=== PATIENT | female | born 1995 | race Caucasian/White ===

== ENCOUNTER 2022-02-21 09:41 | Emergency (ER) | payer OTHER, SELFPAY ==
--- NOTE | ~2022-02-21 | US_ITS ---
EXAMINATION: US pelvic complete w TV DATE: 02/21/2022 12:59 INDICATION: Vaginal bleeding with cramps. Comparison:No prior studies for comparison. TECHNIQUE: Multiple transabdominal and endovaginal sonographic images of the pelvis performed. FINDINGS: The uterus measures 7.8 x 3.5 x 3.1 cm. There is a small amount of debris in the endometriu m. The endometrial complex measures 6 mm. The right ovary measures 3.3 x 1.9 x 2.2 cm and the left ovary measures 2.8 x 2.4 x 2.2 cm. There ar e small follicles in each ovary. Normal doppler signal in both ovaries. There is no free fluid in the pelvis. There are no abnormal masses seen on either side. IMPRESSION: 1. Unremarkable pelvic ultrasound Reviewed, dictated and finalized at location B.
[2022-02-21 09:59] VITALS: BP 138/79; PULSE 79; RESP 20; TEMP 37; O2SAT 100
[2022-02-21 10:31] LABS: Basophils Percent Auto 0.6 % (0.2-1.2); Eosinophils Absolute Auto 0.1 K/mm3 (0-0.3); Eosinophils Percent Auto 1.6 % (0-4.4); Hematocrit 42.2 % (37.0-47.0); Hemoglobin 13.6 g/dL (12.0-15.0); Immature Granulocyte Absolute 0.02 K/mm3 (0.00-0.031); Immature Granulocyte Percent A 0.3 % (0-0.5); Lymphocytes Absolute Auto 1.75 K/mm3 (0.9-3.2); Lymphocytes Percent Auto 24.7 % (18.3-44.2); Mean Corpuscular HGB Conc 32.2 g/dl (32-36); Mean Corpuscular Hemoglobin 27.8 pg (26-34); Mean Corpuscular Volume 86.3 fl (80-100); Mean Platelet Volume 10.5 fl (7.4-10.4); Monocytes Absolute Auto 0.8 K/mm3 (0.1-0.6); Neutrophils Absolute Auto 4.4 K/mm3 (1.3-6.7); Neutrophils Percent Auto 61.8 % (45.5-73.1); Platelet Count Result 230 k/mm3 (150-375); Red Blood Count 4.89 M/mm3 (4.2-5.4); Red Cell Distribution Width 12.9 % (11.5-14.5); White Blood Count 7.1 K/mm3 (4.5-10.0)
[2022-02-21 10:57] LABS: Beta HCG Quantitative < 2.39 mIU/ML
--- NOTE | 2022-02-21 12:07 | ED.FEMALEGU ---
HPI - Female Genitourinary General Chief complaint: Vaginal Bleeding Stated complaint: HEAVY VAG BLEEDING Time Seen by Provider: 02/21/22 11:56 History of Present Illness HPI Narrative: 26-year-old female here for evaluation of heavy menstrual bleeding for the past several days. Patient states that she started her usual menstrual cycle on 14 February which was 5 days late. She had her usual cycle that lasted about 5 days. The bleeding returned 3 days ago, has been heavy, and she has passed small blood clots. States she soaked through a regular tampon in about an hour. She denies history of irregular cycles, she is not currently on control. She is unsure if she is . She follows with an PULL OUT OPERATOR, but is unsure of the name. Additionally notes some lower abdominal cramping but has not taken anything for this today. Related Data Allergies Allergy/AdvReac Type Severity Reaction Status Date / Time No Known Allergies Allergy Verified 02/21/22 11:52 Review of Systems Review of Systems: Gen: Denies fevers or chills Eyes: Denies eye pain or visual change ENT: Denies congestion Respiratory: Denies shortness of breath or cough CV: Denies chest pain or palpitations GI: Denies abdominal pain nausea, emesis or diarrhea : reports heavy vaginal bleeding. Musculoskeletal: Denies back pain or muscle pain Neuro: Denies numbness, tingling, weakness or focal weakness Skin: Denies rash Except as documented, all other systems reviewed and negative Exam Narrative: APPEARANCE: Well appearing, no pain in distress, well-nourished. Head: Normocephalic and atraumatic. EYES: PERRLA/EOMI, conjunctivae clear NOSE: No nasal drainage EARS: External ear normal in appearance THROAT: Oropharynx is clear. Mucous membranes are moist. NECK: Supple. No adenopathy, no masses. RESPIRATORY: Airway patent, respirations nonlabored. Clear to auscultation bilaterally, no rales, rhonchi, wheezing. CARDIOVASCULAR: Regular rate and rhythm without murmurs, rubs, or gallops. ABDOMINAL: Normoactive bowel sounds. Soft, nontender, nondistended. No rebound tenderness or guarding. : Pelvic exam with scant amount of blood in the vaginal vault, cervical os is closed, no brisk vaginal bleeding or hemorrhage. MUSCULOSKELETAL: Extremities are warm and well-perfused. Moves all extremities well. No edema. NEURO: Normal speech. No focal neurologic deficits. SKIN: Skin is warm and dry. No rashes. PSYCHIATRIC: Normal affect/mood.. Course Vital Signs Vital signs: Vital Signs Temperature 98.6 F 02/21/22 09:59 Pulse Rate 79 02/21/22 09:59 Respiratory Rate 20 02/21/22 09:59 Blood Pressure 138/79 02/21/22 09:59 Pulse Oximetry 100 02/21/22 09:59 Oxygen Delivery Room Air 02/21/22 09:59 Temperature 98.6 F 02/21/22 09:59 Pulse Rate 79 02/21/22 09:59 Respiratory Rate 20 02/21/22 09:59 Blood Pressure 138/79 02/21/22 09:59 Pulse Oximetry 100 02/21/22 09:59 Oxygen Delivery Room Air 02/21/22 09:59 MDM - Female Genitourinary MDM Narrative Medical decision making narrative: 26-year-old female here for evaluation of heavy vaginal bleeding for the past several days extending past her normal menstrual cycle. Here she is nontoxic-appearing with normal vital signs. Urine is negative. Her hemoglobin hematocrit are normal. She has no abdominal tenderness on exam. Pelvic exam with scant amount of blood noted in the vaginal vault, cervical os is closed, pelvic ultrasound unremarkable. Patient will be discharged to follow-up with her PULL OUT OPERATOR and we will send in iron supplementation to pharmacy. She was given reasons to return to the ED and she voiced understanding. Lab Data Result diagrams: 02/21/22 10:25 Labs: Lab Results 02/21/22 02/21/22 02/21/22 Range/Units 10:25 10:25 10:25 WBC 7.1 (4.5-10.0) K/mm3 RBC 4.89 (4.2-5.4) M/mm3 Hgb 13.6 (12.0-15.0) g/dL Hct 42.2 (37.0-47.0) %
[2022-02-21] MEDS: KETOROLAC 15 MG/ML VIAL (*BKC) IV PUSH (12:31)
== END 2022-02-21 13:28 | disposition home or self-care (01) ==
PROVIDERS: Emergency Provider Emergency Medicine
DX: N93.9 Abnormal uterine and vaginal bleeding, unspecified (principal)
CPT/HCPCS: 36415; 76830; 76856; 84702; 85025; 85461; 96374; 99284; J1885

== ENCOUNTER 2024-06-29 14:07 | Outpatient (CLI) | payer BC, SELFPAY ==
--- OUTSIDE RECORDS SUMMARY | 2024-06-29 14:26 | XMS_ITS | Clinical Summary ---
Author Organization [facility] Address [address] [place] [address] Care Team Providers Care Process Stripper Name Role Phone Clau Ghotra Primary Care Provider [phone] Allergies No known active allergies Medications No known medications Active Problems No known active problems Resolved Problems Problem Noted Date Diagnosed Date Resolved Date Encounter for preventive health examination 01/26/2016 11/14/2020 Immunizations Name Administration Dates Next Due DTaP (Daptacel) 1997 Dtap 10/30/2001 Hepatitis A (Generic) 12/08/2008,10/08/2007 Influenza (FluMist) 02/27/2011 Influenza (Generic) 03/03/2008,03/20/2007 Influenza Adult (Generic) 04/01/2014,03/31/2013 MMR 10/30/2001 Menactra 04/01/2014 Meningococcal 12/08/2008 Polio IPV (Ipol) 10/30/2001 Tdap (Boostrix) 12/08/2008 Tdap (Generic) 03/21/2018 Varicella Vaccine 10/08/2007 Family History * Patient is adopted Relation Status Comments Father Alive Mother Alive Social History Tobacco Use Types Packs/Day Years Used Date Smoking Tobacco: Never Smokeless Tobacco: Never Tobacco Cessation:Counseling Given: No Alcohol Use Standard Drinks/Week Comments Yes 0 (1 standard drink = 0.6 oz pur e alcohol) socially PHQ-2 Answer Date Recorded PHQ-2 Score - If the patient scores above 3, please move on to questions 3-9 0 01/12/2021 Comments No Sex and Gender Information Value Date Recorded Sex Assigned at Not on file Legal Sex Female 7:58 PM CDT Gender Identity Not on file Sexual Orientation Not on file Last Filed Vital Signs Vital Sign Reading Time Taken Comments Blood Pressure 110/66 01/12/2021 8:05 AM CDT Pulse 76 01/12/2021 8:05 AM CDT Temperature 36.3 C (97.3 F) 01/12/2021 8:05 AM CDT Respiratory Rate 16 01/12/2021 8:05 AM CDT Oxygen Saturation 97% 01/12/2021 8:05 AM CDT Inhaled Oxygen Concentration - - Weight 82.6 kg (182 lb) 01/12/2021 8:05 AM CDT Height 162.6 cm (5' 4 ) 01/12/2021 8:05 AM CDT Body Mass Index 31.24 01/12/2021 8:05 AM CDT Plan of Treatment Health Maintenance Due Date Last Done Comments Cervical Cancer Screening Pap Smear (Age 21 to 29) Every 3 Years 1997 Cervical Cancer Screening 1997 Annual Physical 2000 HPV Vaccines (1 - 3-dose series) 2012 Hepatitis C 09/23/2015 Hepatitis B Vaccines (1 of 3 - 19+ 3-dose series) 2016 COVID-19 Vaccine ( - season) 2024 Influenza Adult (#1) 2024 04/01/2014, 03/31/2013, 02/27/2011, Additional history exists DTaP, Tdap and Td Vaccines (5 - Td or Tdap) 03/21/2028 03/21/2018, 12/08/2008, 10/30/2001, Additional history exists Meningococcal Vaccine Completed 04/01/2014, 009 Meningococcal B Vaccine Aged Out No l onger eligible based on patient's age to complete this topic Pneumococcal Vaccine: Pediatrics (0 to 5 Years) and At-Risk Patients (6 to 64 Years) Aged Out No longer eligible based on patient's age to complete this topic RSV Immunizations Under 20 Months Aged Out No longer eligible based on patient's age to complete this topic Insurance Care Teams Process Stripper Relationship Specialty Start Date End Date Clau Ghotra APNP PCP - General 12/10/16
--- OUTSIDE RECORDS SUMMARY | 2024-06-29 14:26 | XMS_ITS | Referral Summary ---
Author Organization [facility] [employer] Address [address] [place] [address] Care Team Providers Care Clinical Cytogenetics Director Name Role Phone Clau Henderson DO Primary Care Provider Source Comments [facility],non-owned Affiliates and Associated Physician Practices is amultiple site organization consisting of ambulatory clinics and hospital sitesin [place], [place], [place] and [place]. This disclosure is being madepursuant to the Care Everywhere program and may not contain all information available regarding this patient. Last updated 18.[facility] Allergies No known active allergies Medications Be aware that medications may not be up to date on this document. Always verify current medications with the patient. No known medications Active Problems No known active problems Immunizations Name Administration Dates Next Due TDAP (7yrs+) 03/21/2018 Social History Tobacco Use Types Packs/Day Years Used Date Smoking Tobacco: Never Smokeless Tobacco: Never Alcohol Use Standard Drinks/Week Comments Yes 0 (1 standard drink = 0.6 oz pur e alcohol) AUDIT-C Answer Date Recorded Q1: How often do you have a drink containing alc ohol? Monthly or less 08/04/2020 Average Number of Drinks Not on file 021 Frequency of Binge Drinking Not on file 07/18 Sex and Gender Information Value Date Recorded Sex Assigned at Not on file Gender Identity Not on file Sexual Orientation Not on file Last Filed Vital Signs Vital Sign Reading Time Taken Comments Blood Pressure 110/80 08/04/2020 1:37 PM CDT Pulse 90 08/04/2020 1:37 PM CDT Temperature 36.7 C (98.1 F) 08/04/2020 1:37 PM CDT Respiratory Rate - - Oxygen Saturation 98% 08/04/2020 1:37 PM CDT Inhaled Oxygen Concentration - - Weight 80.7 kg (178 lb) 08/04/2020 1:37 PM CDT Height 165.1 cm (5' 5 ) 08/04/2020 1:37 PM CDT Body Mass Index 29.62 08/04/2020 1:37 PM CDT Plan of Treatment Not on file Care Teams Clinical Cytogenetics Director Relationship Specialty Start Date End Date Clau Henderson DO PCP - General Internal Medicine 08/04/20
--- OUTSIDE RECORDS SUMMARY | 2024-06-29 14:26 | XMS_ITS | Encounter Summary ---
Author Organization [facility] Address [address] [place] [address] Care Team Providers Care Parts Identification Technician Name Role Phone Clau Ghotra Primary Care Provider [phone] Encounter Details Date Type Department Care Team (Late st Contact Info) Description 03/23/2017 [place] [address] , Generic ConversionMD Social History Tobacco Use Types Packs/Day Years Used Date Smoking Tobacco: Never Assessed Comments Unknown Sex and Gender Information Value Date Recorded Sex Assigned at Not on file Legal Sex Female 7:58 PM CDT Gender Identity Not on file Sexual Orientation Not on file documented as of this encounter Plan of Treatment Not on file documented as of this encounter Visit Diagnoses Not on filedocumented in this encounter Care Teams Parts Identification Technician Relationship Specialty Start Date End Date Clau Ghotra APNP PCP - General 12/10/16 documented as of this encounter
--- OUTSIDE RECORDS SUMMARY | 2024-06-29 14:26 | XMS_ITS | Clinical Summary ---
Author Organization [facility] [employer] Address [address] [place] [address] Care Team Providers Care Palaeontologist Name Role Phone Clau Henderson DO Primary Care Provider Source Comments [facility],non-owned Affiliates and Associated Physician Practices is amultiple site organization consisting of ambulatory clinics and hospital sitesin [place], [place], [place] and [place]. This disclosure is being madepursuant to the Care Everywhere program and may not contain all information available regarding this patient. Last updated 18.[employer] [facility] Allergies No known active allergies Medications Be aware that medications may not be up to date on this document. Always verify current medications with the patient. No known medications Active Problems No known active problems Immunizations Name Administration Dates Next Due TDAP (7yrs+) 03/21/2018 Family History * Patient is adopted Medical History Relation Name Comments None Known Adoptive Father None Known Adoptive Mother Other Brother 1 Donn alcohol s yndrome None Known Brother 2 Barry Other Sister Theresa alcohol s yndrome Relation Name Status Comments Adoptive Father Alive Adoptive Mother Alive Brother 1 Donn Alive Brother 2 Barry Alive Maternal Grandfather Maternal Grandmother Paternal Grandfather Paternal Grandmother Sister Theresa Alive Social History Tobacco Use Types Packs/Day [...] 08/04/2020 1:37 PM CDT Plan of Treatment Health Maintenance Due Date Last Done Comments PAP SMEAR 1997 HPV VACCINE (1 - 3-dose series) 2012 HEPATITIS B VACCINE (1 of 3 - 19+ 3-dose series) 2016 COVID-19 VACCINE ( - 2023-2 5 season) 2024 INFLUENZA VACCINE (#1) 2024 DEPRESSION SCREENING 05/20/2024 DTAP/TDAP/TD VACCINES (2 - T d or Tdap) 03/21/2028 03/21/2018 ZOSTER VACCINE (1 of 2) 09/23/2047 HEPATITIS C SCREENING Discontinued HIB VACCINE Aged Out No longer eligi ble based on patient's age to complete this topic HIV SCREENING Discontinued MENINGOCOCCAL (Group B) VACCINE Aged Out No longer eligible based on patient's age to complete this topic MENINGOCOCCAL VACCINE Aged Out No jeremiah ronit eligible based on patient's age to complete this topic PNEUMOCOCCAL VACCINE Aged Out No long er eligible based on patient's age to complete this topic Care Teams Palaeontologist Relationship Specialty Start Date End Date Calu Henderson DO PCP - General Internal Medicine 08/04/20
--- OUTSIDE RECORDS SUMMARY | 2024-06-29 14:26 | XMS_ITS | Patient Health Summary ---
Author Organization [facility] [employer] Address [address] [place] [address] Care Team Providers Care Home Appliance Installer Name Role Phone Clau Henderson DO Primary Care Provider [phone] Note from [facility],non-owned Affiliates and Associated Physician Practices is amultiple site organization consisting of ambulatory clinics and hospital sitesin [place], [place], [place] and [place]. This disclosure is being madepursuant to the Care Everywhere program and may not contain all information available regarding this patient. Last updated 18.[facility] [employer] Allergies No known active allergies Medications Be aware that medications may not be up to date on this document. Always verify current medications with the patient. No known medications Active Problems No known active problems Immunizations * TDAP (7yrs+)(Given 03/21/2018) Social History Tobacco Use Types Packs/Day Years [...] Mass Index 29.62 08/04/2020 1:37 PM CDT Care Teams Home Appliance Installer Relationship Specialty Start Date End Date Clau Henderson DO PCP - General Internal Medicine 08/04/20
== END 2024-06-29 14:08 | disposition home or self-care (01) ==
LOC: ANHSURGERY 14:12
PROVIDERS: Visit Provider Obstetrics & Gynecology
DX: Z01.812 Encounter for preprocedural laboratory examination (principal); R10.2 Pelvic and perineal pain
CPT/HCPCS: 36415; 86850; 86900; 86901

== ENCOUNTER 2024-07-10 04:58 | Day surgery (SDC) | payer BC, SELFPAY ==
[2024-06-25 12:36] VITALS: BMI 27.5
--- NOTE | 2024-06-25 12:38 | SUR.PREOP ---
Report to the Outpatient Waiting Room, entrance under the green pavilion located off [facility], at time _0730_ on date _07/10/2024_. Planned Procedure Time: _0930_.? Time changes happen often and if your time is changed the preop area will call you the afternoon before. - You and your visitor will be asked to self-screen and do not enter if you have any COVID symptoms. Please call surgeon if you need to reschedule. - A mask is optional within the hospital at this time. Patients may have clear liquids (water, carbonated beverages, clear teas, apple juice) until 3 hours (0630) prior to surgery with a maximum of 20 ounces. - No food from midnight until time of surgery and no smoking, or chewing tobacco (or any form of nicotine). No chewing gum, candy or mints. Take only the following medications with a SIP of water on the morning of surgery: _valacyclovir_ DO NOT STOP ANY OF YOUR OTHER PRESCRIPTION MEDICATIONS PRIOR TO SURGERY EXCEPT THE FOLLOWING Hold all vitamins and supplements for 3 days per anesthesiologist. Medications to discontinue per physician _NA_ Date to take last dose_NA_ Please no make-up, nail croatian, hairspray, perfume, deodorant, or body powder the day of surgery.? No jewelry (including any body piercings) or valuables the day of surgery, leave them at home.? Please take a shower or bath the night before, or the morning of, surgery with an antibacterial soap.? Wear comfortable, loose fitting clothing. - Jewelry must be removed prior to entering the operating room.? Rings and piercings that are not removed may be cut off. - The hospital will not accept responsibility for valuables.? - Please leave all valuables, including medications, at home the day of surgery. If you are going home after surgery, a licensed winch driver must drive you home.? - NO public transportation without another adult if you receive anesthesia. - We recommend that an adult stay with you for 24 hours following discharge. - We also recommend that you do not drive, make important decision, drink alcoholic beverages, or take any drugs that were not prescribed by your health care provider for at least 24 hours after your discharge time. Follow any additional instructions given to you from your surgeon. Telephone instructions given to _Vasquez_and asked if any additional questions and then verbalized understanding. Patient advised to call surgeon office or pre surgery nurse liaison [phone] if any additional questions.
--- NOTE | 2024-07-08 07:22 | P.HP_ITS ---
H&P: HPI History of Present Illness Date/Time: 07/08/24 07:22 Chief Complaint: Pelvic pain Narrative: This is 28-year-old 0 admitted for laparoscopy with chromopertubation. She has severe dysmenorrhea pelvic pain and dyspareunia. She had STD testing which was negative she will undergo diagnostic laparoscopy. She would like to have a chromopertubation while this was going on and out of agreed. Risks and benefits of this procedure reviewed including min exclusive of , aspiration pneumonia, bleeding, transfusion, perforation injury to bowel, bladder, ureters, or other internal organs with need for open laparotomy. She received the ACOG handout entitled laparoscopy. She had all questions answered. She asked to proceed. Review of Systems Review of Systems: Gen: Denies fevers or chills Eyes: Denies eye pain or visual change ENT: Denies congestion Respiratory: Denies shortness of breath or cough CV: Denies chest pain or palpitations GI: Denies abdominal pain nausea, emesis or diarrhea : reports heavy vaginal bleeding. Musculoskeletal: Denies back pain or muscle pain Neuro: Denies numbness, tingling, weakness or focal weakness Skin: Denies rash Except as documented, all other systems reviewed and negative [facility] Social History Social History Smoking status: Never smoker Second hand tobacco smoke exposure: No Substance use: never Substance use type: does not use Living arrangements: with friend(s) Additional living arrangements comments: with boyfriend Spiritual care concerns: No Meds Home Medications and Allergies Home Medications ?Medication ?Instructions ?Recorded ?Confirmed ?Type valacyclovir 500 mg tablet 500 mg PO DAILY HSV 06/25/24 06/25/24 History Allergies Allergy/AdvReac Type Severity Reaction Status Date / Time No Known Allergies Allergy Verified 06/25/24 12:31 Exam Const: General: cooperative, healthy appearing and comfortable Nutritional Appearance: average body habitus Orientation/consciousness: oriented to person, oriented to place and oriented to time HENMT: Head: normal to inspection Resp: Effort & Inspection: normal respiratory effort Cardio: Rate: regular rate Rhythm: regular rhythm Heart sounds: S1 normal heart sound present and S2 normal heart sound present GI: Inspection: normal to inspection : External Female Exam: normal external appearance Speculum Exam - Vagina: normal appearance of the vagina Speculum Exam - Cervix: normal appearance of the cervix Bimanual exam- vagina & uterus: Uterine tenderness Bimanual Exam- Adnexa, other: tender bilaterally Assessment and Plan Assessment and plan (1) Pelvic pain: Code(s): R10.2 - Pelvic and perineal pain Status: Acute Plan Proceed with diagnostic laparoscopy and chromopertubation
[2024-07-10] VITALS (10 sets, daily range): BP systolic 92–128; BP diastolic 49–76; PULSE 54–86; RESP 12–18; TEMP 36.5–36.6; O2SAT 97–100
--- OUTSIDE RECORDS SUMMARY | 2024-07-10 05:01 | XMS_ITS | Patient Health Summary ---
Author Organization [facility] [employer] Address [address] [place] [address] Care Team Providers Care Film And Video Editor Name Role Phone Clau Henderson DO Primary Care Provider [phone] Note from [facility],non-owned Affiliates and Associated Physician Practices is amultiple site organization consisting of ambulatory clinics and hospital sitesin [place], [place], [place] and [place]. This disclosure is being madepursuant to the Care Everywhere program and may not contain all information available regarding this patient. Last updated 18.[facility] [employer] Allergies No known active allergies Medications Be [...] 29.62 08/04/2020 1:37 PM CDT Care Teams Film And Video Editor Relationship Specialty Start Date End Date Clau Henderson DO PCP - General Internal Medicine 08/04/20
--- OUTSIDE RECORDS SUMMARY | 2024-07-10 05:01 | XMS_ITS | Referral Summary ---
Author Organization [facility] [employer] Address [address] [address] Care Team Providers Care Tail End Rider Name Role Phone Clau Henderson DO Primary Care Provider Source Comments [facility] [employer],non-owned Affiliates and Associated Physician Practices is amultiple site organization consisting of ambulatory clinics and hospital sitesin [place], [place], [place] and [place]. This disclosure is being madepursuant to the Care Everywhere program and may not contain all information available regarding this patient. Last updated 18.[facility] [employer] Allergies No known active allergies Medications Be [...] of Treatment Not on file Care Teams Tail End Rider Relationship Specialty Start Date End Date Clau Henderson DO PCP - General Internal Medicine 08/04/20
--- OUTSIDE RECORDS SUMMARY | 2024-07-10 05:01 | XMS_ITS | Clinical Summary ---
Author Organization [facility] Address [address] [place] [address] Care Team Providers Care Counter Supply Worker Name Role Phone Clau Henderson DO Primary Care Provider [phone] Source Comments [facility],non-owned Affiliates and Associated Physician Practices is amultiple site organization consisting of ambulatory clinics and hospital sitesin [place], [place], [place] and [place]. This disclosure is being madepursuant to the Care Everywhere program and may not contain all information available regarding this patient. Last updated 18.[employer] Allergies No known active allergies Medications Be [...] age to complete this topic Care Teams Counter Supply Worker Relationship Specialty Start Date End Date Clau Henderson DO PCP - General Internal Medicine 08/04/20
--- OUTSIDE RECORDS SUMMARY | 2024-07-10 05:01 | XMS_ITS | Encounter Summary ---
Author Organization [facility] Address [address] [place] [address] Care Team Providers Care Community Arts Officer Name Role Phone Clau Ghotra Primary Care Provider [phone] Encounter Details Date Type Department Care Team (Late st Contact Info) Description 03/23/2017 [place] [address] , Generic ConversionMD Social History Tobacco Use [...] on filedocumented in this encounter Care Teams Community Arts Officer Relationship Specialty Start Date End Date Clau Ghotra APNP PCP - General 12/10/16 documented as of this encounter
--- OUTSIDE RECORDS SUMMARY | 2024-07-10 05:01 | XMS_ITS | Clinical Summary ---
Author Organization [facility] Address [address] [place] [address] Care Team Providers Care Marble Cleaner Name Role Phone Clau Ghotra Primary Care Provider [phone] Allergies No known active allergies Medications No [...] to complete this topic Insurance Care Teams Marble Cleaner Relationship Specialty Start Date End Date Clau Ghotra APNP PCP - General 12/10/16
--- NOTE | 2024-07-10 06:20 | WPDHPUPDATE1 ---
History and Physical Update Update Date/Time: 07/10/24 06:20 History and Physical has been reviewed, including an updated exam of the patient. There are NO changes in the patient's condition. Risks, benefits, and alternatives have been discussed and questions answered. Patient agrees to proceed with procedure.
--- NOTE | 2024-07-10 08:03 | P.PNAN_ITS ---
Anes - Initial Pre Proc Eval Procedure: Operation Date: 07/10/24 09:30 Proposed Procedures p Diagnostic Laparoscopy with Chromotubation - Jose Plata MD Date/Time: 07/10/24 08:03 Surgeon: Jose Plata MD Pre Op Diagnosis: Pelvic Pain, Dyspareunia Patient Data Age: 28 Gender: F Height: 1.63 m Weight: 72.72 kg Allergies Allergy/AdvReac Type Severity Reaction Status Date / Time No Known Allergies Allergy Verified 06/25/24 12:31 Home Medications ?Medication ?Instructions ?Recorded ?Confirmed ?Type valacyclovir 500 mg tablet 500 mg PO DAILY HSV 06/25/24 06/25/24 History hydrocodone 5 mg-acetaminophen 325 1 tablet PO Q4H PRN pain #20 tabs 07/10/24 Rx mg tablet Patient hx anesthesia problems: none Family hx anesthesia problems: none Results Review: All pre-operative results and documents have been reviewed as part of the pre- operative evaluation. PMFSH Past Medical History Medical History (Updated 07/10/24 @ 07:23 by Cyrus Jackson DO) ADHD Anxiety Social History Social History Smoking status: Never smoker Second hand tobacco smoke exposure: No Substance use: never Substance use type: does not use Living arrangements: with friend(s) Spiritual care concerns: No Anes - Eval Final PreProcedure Day of Procedure 07/10/24 08:03 Patient weight: overweight Heart: regular rate and rhythm Lungs: clear to auscultation Airway: Mallampati scale class II Neurological: alert and oriented Last oral intake: >/= 8 hours ASA classification: II Emergent: no Anesthetic plan: proceed Anesthesia type and monitoring: general ETT and standard monitoring Results Review: All pre-operative results and documents have been reviewed as part of the pre- operative evaluation. Informed Consent: The patient's anesthetic plan and its attendant risks and benefits were discussed with the patient/family/POA. Questions were solicited and answers provided to the satisfaction of the patient/family/POA.
[2024-07-10] MEDS: ACETAMINOPHEN 500 MG TABLET 1000 MG PO (08:20)
[2024-07-10] MEDS: LACTATED RINGERS 1,000 ML 30 ML IV CONT ×2 (08:20→11:09)
[2024-07-10] MEDS: KETOROLAC 15 MG/ML VIAL (*BKC) IV PUSH (08:20)
[2024-07-10 08:44] LABS: BEDSIDEPREGUCG Negative (Negative)
[2024-07-10] MEDS: METHYLENE BLUE 0.5% INJ 10 ML AMPULE 5 ML IRRIGATION (10:26)
--- NOTE | 2024-07-10 10:31 | W.PM.PROC2 ---
Procedure Note - Detailed Date of Procedure 07/10/24 Pre-op Diagnosis Pelvic Pain, Dyspareunia Post-op Diagnosis Other (Same with endometriosis) Procedure Performed Laparoscopy with destruction of endometriosis and chromopertubation Surgeon Jose Plata MD Anesthesia General Indications 28-year-old female admitted for pelvic pain. Her symptoms seemed consistent with endometriosis. She also had desired chromopertubation to see if her tubes were open as she is planning in the future Findings Small areas of endometriosis along the right left uterosacral ligaments left worse than right. Normal-appearing ovaries and tubes. The tubes were patent Description of Procedure The patient was prepped draped in the normal sterile fashion placed in the dorsal lithotomy position. Under excellent general endotracheal anesthesia weighted speculum placed in posterior fornix vagina. Anterior lip of cervix grasped with a single-tooth tenaculum. The ELIER was placed in the cervix after draining the bladder clear urine the weighted speculum was removed. The gloves were changed. A supraumbilical incision made the Veress needle passed in the abdomen. Abdomen filled with CO2 gas [id number]. The 5mm trocar advanced under direct visualization assuring no injury. Patient placed in Trendelenburg and a suprapubic incision made. The 5mm trocar advanced under direct visualization assuring no injury. A 10cc of serosanguineous fluid seen in the cul-de-sac and this was irrigated and suctioned away. Small areas of endometriosis were seen along the right left uterosacral ligaments were with the left contained more than the right. These were cauterized at 35 w per 2nd. Ovaries and tubes appeared within normal limits. No other abnormalities were seen. A dilute methylene blue was then placed through the ELIER and both tubes were noted to be patent. The instruments withdrawn and the gas removed. The incisions closed with 4-0 Monocryl and glue. The patient was awakened went recovery in satisfactory condition. All sponge, needle, instrument counts were correct. There were no immediate complications Estimated Blood Loss 5 Drains No Packing No Pathology None sent Complications No immediate complications Condition Stable Disposition PACU
[2024-07-10] MEDS: fentaNYL CITRATE INJ (*CRX) 100 MCG/2 ML VIAL 25 MCG IV PUSH ×5 (10:46→11:22)
[2024-07-10] MEDS: ONDANSETRON INJ 4 MG/2 ML VIAL IV PUSH (10:48)
[2024-07-10] MEDS: diphenhydrAMINE HCl INJ 50 MG/ML VIAL 25 MG IV PUSH (11:31)
[2024-07-10] MEDS: oxyCODONE HCL (*CRX) 5 MG TAB IR PO (12:14)
== END 2024-07-10 13:14 | disposition home or self-care (01) ==
PROVIDERS: Visit Provider Obstetrics & Gynecology
PROC: (CPT 49320; principal; 2024-07-10 09:30)
DX: N80.3C3 Endometriosis of bilateral uterosacral ligament(s), unspecified depth (principal)
CPT/HCPCS: 58662; A9270; J1100; J1200; J1885; J2003; J2250; J2405; J2704; J3010; J7120; Q9968